=== PATIENT | male | born 1950 | race Caucasian/White ===

== ENCOUNTER 2017-02-19 16:00 | Outpatient (RCR) | payer OTHER ==
--- NOTE | 2017-01-05 12:37 | PT INITIAL EVALUATION ---
MEDICAL DIAGNOSIS: Right TKA TREATMENT DIAGNOSIS: Right TKA DATE OF ONSET: 12/28/16 SUBJECTIVE: Pt is a 66 year-old male presenting ot PT s/p R TKA on 2016. Pt was discharged from the hospital on 12/31/16 secondary to complications from pain medications causing constipation. Since discharge pt reports high pain levels and that he has been spending most of his time in bed. Pt reports that he occasionally performs his HEP from the hospital, but that he forgot most of it, and occasionally uses his CPM device set at 5-40 degrees flexion. Pt reports that he his pain is located in his R hip and knee rated at 3 /10 occasionally described as throbbing. REHAB PROBLEM LIST: Increased Pain Decreased ROM Impaired Bed Mobility Decreased Strength Impaired Transfers Decreased Endurance Decreased Balance Decreased Function Decreased ADL's Decreased Mobility Decreased Gait PREVIOUS MEDICAL HISTORY: See EMR OCCUPATION: [employer] Employee OBJECTIVE: R leg is swollen throughout with skin taught and shiny. Pt has bruising in the posterior aspect of the thigh and knee. Incision appears to be healing nicely without any redness or discharge. Pt denies any fever, but reports occasional chills. ROM: Knee ROM (ext-flex): R 20-80, L 2-0-125 Strength: Pt unable to perform SLR on the R LE. Mobility: Pt requires moderate assistance with transfers from seated<>supine for support of R LE. Gait: Pt ambulates using FWW without any heel strike or push off on the R LE and decreased WB. Other Objective Findings: Pt on 1 L of oxygen with saturation at 96%. ASSESSMENT: Pt shows signs and symptoms consistent with s/p R TKA. Physical therapy is indicated to improve knee functional mobility and strength to correct the above listed deficits and allow pt to return to prior level of function. Short Term Goals In 3 weeks pt will improve R knee ROM from 0-125 or equal to that of the contralateral limb for improved functional ability to perform ADL's. In 6 weeks pt will improve functional strength of R LE to equal that of the L LE for improved functional ability to perform ADL's. In 6 weeks pt will decrease pain to 1/10 or less with ADL's for improved function. In 6 weeks pt will be able to ambulate without use of AD with good functional gait mechanics and no compensations. Patient's Goals Improve functional ROM and strength. PLAN: Patient to be seen for Manual Therapy/STM/MET Strengthening/condition Ice/Heat Range of Motion Ultrasound Stretching Iontophoresis Neuromuscular Re-ed Closed Chain Program Electrical Stim Posture/Body mechanics Gait Trg/Balance Trg Home Exercise Program [facility]./Manual Traction Therapeutic Activities 3x/Week for 6 Weeks If you have any questions, comments, or concerns about this report or plan, please contact me at . Thank you, Rosmery Del Real, PT, DPT, CLT MTDD
--- NOTE | 2017-02-11 09:10 | PT PLAN OF CARE ---
Physician: Justin Olvera MD Patient is being seen: 3x/Week Therapist: Rosmery Del Real, PT, DPT, CLT Medical Diagnosis: Right TKA Treatment Diagnosis: Right TKA Date of Onset: 12/28/16 Date of Initial Evaluation: 01/04/17 Date patient was last seen: 02/10/17 Number of treatments: 11 Number of cancellations/No shows: 3 INTERVENTIONS: Manual Therapy/STM/MET Strengthening/condition Ice/Heat Range of Motion Ultrasound Stretching Iontophoresis Neuromuscular Re-ed Closed Chain Program Electrical Stim Posture/Body mechanics Gait Trg/Balance Trg Home Exercise Program Mech./Manual Traction Therapeutic Activities GOALS: In 3 weeks pt will improve R knee ROM from 0-125 or equal to that of the contralateral limb for improved functional ability to perform ADL's. In Progress In 6 weeks pt will improve functional strength of R LE to equal that of the L LE for improved functional ability to perform ADL's. In Progress In 6 weeks pt will decrease pain to 1/10 or less with ADL's for improved function. In Progress In 6 weeks pt will be able to ambulate without use of AD with good functional gait mechanics and no compensations. In Progress PATIENT'S GOAL: Improve ROM and function Status of Patient's Goals: In Progress Patient Compliance: Improving from poor to good Prognosis: Good Reasons for continuing therapy: Pt continues to struggle with gains in ROM secondary to increased swelling. However, pt shows progress with PT over pressure and AAROM when riding the bike, and compliance has increased since recent MD visit. AAROM progressed to lacking 2 degrees ext to 110 flexion. Pt continues to have delayed quad activation with significant quad lag. Further PT treatment to continue with gains in ROM while progressing strength and ambulation for pt return to work progressing away from use of walker. ROM: Knee ROM (ext-flex): R 2-110, L 2-0-125 Strength: SLR on R side with 8 degree quad lag Mobility: Pt able to transfer independently from seated<>supine. Pt uses B UE support for transfers from seated<>standing. If you have any questions or concerns please feel free to contact me at [phone]. Thank you, Rosmery Del Real, PT, DPT, CLT MTDD
[~2017-02-19 16:00] MED LIST: AMLO-96 PO; ASPI-757 PO; ASPI81TA94 PO; CAR6.25 PO; CELE-1 PO; NAPR220C12 PO; SIMV-49 PO; TAMS0.4C25 PO; TAMS0.4C70 PO; UBID10CA11 PO
== END 2017-02-19 18:00 | disposition home or self-care (01) ==
LOC: PT 16:00
PROVIDERS: ATTEND Orthopaedic Surgery
DX: Z47.1 Aftercare following joint replacement surgery (principal); Z96.651 Presence of right artificial knee joint; M25.551 Pain in right hip
CPT/HCPCS: 97161

== ENCOUNTER → 2017-11-23 | Outpatient (CLI) | payer OTHER ==
[~2017-11-23] MED LIST changes: +AMLO-111 PO; -AMLO-96 PO
--- NOTE | 2017-11-26 19:43 | RT HOLTER TEST ---
FACILITY: [facility] PATIENT NAME: DANELLE HYATT : [id number] MR: [id number] V: [id number] EXAM DATE: ORDERING PHYSICIAN: TIM NGUYEN TECHNOLOGIST: David Hook-up date: 2017-11-23 13:18:00 Duration: 47:55:00 Test Indications: Paroxusmal A-Fib Medications: none listed [id number] QRS complexes 528 Ventricular ectopics which represent <1 % of total QRS comp. 290 Supraventricular ectopics which represent <1 % of total QRS comp. * Paced QRS complexes which represent % of total QRS comp. VENTRICULAR ECTOPY 528 Isolated 0 Bigeminal Cycles 0 Couplets 0 Runs 0 Beats in Runs * Beats LONGEST at * BPM at :: -- * Beats FASTEST at * BPM at :: -- SUPRAVENTRICULAR ECTOPY 234 Isolated 4 Couplets 10 Runs 48 Beats in Runs 10 Beats LONGEST at 127 BPM at 12:11:07 2017-11-24 3 Beats FASTEST at 153 BPM at 11:22:45 2017-11-25 HEART RATES 52 MIN at 04:50:19 2017-11-24 74 AVG 138 MAX at 22:50:14 2017-11-24 LONGEST RR 1.648 secs at 11:11:55 2017-11-24 S-T LEVELS Channel 1 -12.800 mm MIN at 13:18:00 2017-11-23 -12.800 mm MAX at 13:18:00 2017-11-23 Channel 2 -12.800 mm MIN at 13:18:00 2017-11-23 -12.800 mm MAX at 13:18:00 2017-11-23 Sinus rhythm Premature supraventricular complexes Premature atrial complexes Premature ventricular complexes Confirmed by ROBIN MARKS ([id number]) on 11/26/2017 7:43:12 PM Referred By: Overread By: ROBIN MARKS
== END ==
LOC: RESP 06:37
PROVIDERS: ATTEND Internal Medicine Cardiovascular Disease
DX: I48.0 Paroxysmal atrial fibrillation (principal)
CPT/HCPCS: 93225

== ENCOUNTER → 2017-12-29 | Outpatient (REF) | DX: Z02.9 Encounter for administrative examinations, unspecified (principal) ==